=== PATIENT | male | born 1945 | race Two or more races ===

== ENCOUNTER 2019-05-07 05:00 | Day surgery (SDC) | payer OTHER ==
[~2019-05-07 05:00] MED LIST: ALDACTONE50 MG PO; FOSAMAX70 MG PO; GOCOVRI68.5 MG PO; LASIX20 MG PO; LIPITOR40 MG PO
[2019-05-07] MEDS ORDERED: COLACE100 MG PO (11:51)
[2019-05-07] MEDS ORDERED: PERCOCET 5-3251 EACH PO (11:51)
== END 2019-05-07 16:15 | disposition home or self-care (01) ==
LOC: CIR.AMB 05:00
DX: K60.3 Anal fistula (principal)